=== PATIENT | female | born 1990 | race Caucasian/White ===

== ENCOUNTER 2017-01-13 00:04 | Emergency (ER) | payer OTHER ==
[2017-01-13] MEDS ORDERED: ONDANSETRON 4 MG/2 ML VIAL IVPB ONE (00:27)
[2017-01-13] MEDS ORDERED: FAMOTIDINE 20 MG/50 ML IVPB 50 ML IVPB ONE ×2 (00:27→00:47)
[2017-01-13] MEDS ORDERED: ACETAMINOPHEN 325 MG TABLET (FP) PO ONE (00:27)
[2017-01-13] MEDS ORDERED: SODIUM CHLORIDE 1,000 ML IV STA (00:27)
[2017-01-13 00:30] VITALS: BP 130/77; PULSE 71; TEMP 98.3; BMI 27.3
--- NOTE | 2017-01-13 00:30 | PDOC ---
History of Present Illness - General History Source: Patient Exam Limitations: No Limitations - History of Present Illness Initial Comments: 01/13/17 00:44 The patient is a 26 year old female, with no significant past medical history, who presents to the emergency department with intermittent RUQ pain for the past 3 months but worsening since yesterday. The most recent episode started yesterday with associated nausea and vomiting. The patient reports that the pain is occasionally worsened after eating. The patient denies fever, chills, diarrhea, flank pain, dysuria or urinary frequency. The patient denies a prior history of gallstones but endorse a family history. LMP: currently. Allergies: NKDA. Past Surgical History: None reported. Social History: Non smoker. Denies alcohol or drug use. PCP: [facility] <Angeline Schmidt - Last Filed: 01/13/17 01:49> - General History Source: Patient Exam Limitations: No Limitations <Osmin Aguila - Last Filed: 01/13/17 02:04> - General Stated Complaint: ABDOMINAL PAIN Time Seen by Provider: 01/13/17 00:21 Past History <Angeline Schmidt - Last Filed: 01/13/17 01:49> - Past Medical History Suicide Attempt (Hx): No - Immunization History Immunization Up to Date: Yes - Psycho/Social/Smoking Cessation Hx Anxiety: No Suicidal Ideation: No Smoking Status: No Smoking History: Never smoked Number of Cigarettes Smoked Daily: 0 Cigars Per Day: 0 Hx Alcohol Use: No Drug/Substance Use Hx: No Substance Use Type: None <Osmin Aguila - Last Filed: 01/13/17 02:04> - Past Medical History Allergies/Adverse Reactions: Allergies Allergy/AdvReac Type Severity Reaction Status Date / Time venom-honey bee AdvReac Verified 01/13/17 00:30 [bee venom (honey bee)] Home Medications: Ambulatory Orders Naproxen [Naprosyn -] 500 mg PO BID PRN #14 tablet 01/13/17 Ondansetron HCl [Zofran] 4 mg PO Q6H PRN #15 tablet 01/13/17 Review of Systems - Review of Systems Able to Perform ROS?: Yes Comments:: 01/13/17 00:33 GENERAL/CONSTITUTIONAL: No fever or chills. No weakness. HEAD, EYES, EARS, NOSE AND THROAT: No change in vision. No ear pain or discharge. No sore throat. CARDIOVASCULAR: No chest pain or shortness of breath. RESPIRATORY: No cough, wheezing, or hemoptysis. GASTROINTESTINAL: +Nausea, vomiting, RUQ pain. No diarrhea or constipation. GENITOURINARY: No dysuria, frequency, or change in urination. MUSCULOSKELETAL: No joint or muscle swelling or pain. No neck or back pain. SKIN: No rash. NEUROLOGIC: No headache, vertigo, loss of consciousness, or change in strength/ sensation. ENDOCRINE: No increased thirst. No abnormal weight change. HEMATOLOGIC/LYMPHATIC: No anemia, easy bleeding, or history of blood clots. ALLERGIC/IMMUNOLOGIC: No hives or skin allergy. <Angeline Schmidt - Last Filed: 01/13/17 01:49> *Physical Exam - Vital Signs Last Vital Signs Temp Pulse Resp BP Pulse Ox 98.3 F 71 18 130/77 100 01/13/17 00:24 01/13/17 00:24 01/13/17 00:24 01/13/17 00:24 01/13/17 00:24 - Physical Exam Comments: 01/13/17 00:32 GENERAL: Awake, alert, and fully oriented, in no acute distress. HEAD: No signs of trauma. EYES: PERRLA, EOMI, sclera anicteric, conjunctiva clear. ENT: Auricles normal inspection, hearing grossly normal, nares patent, oropharynx clear without exudates. Moist mucosa. NECK: Normal ROM, supple, no lymphadenopathy, JVD, or masses. LUNGS: Breath sounds equal, clear to auscultation bilaterally. No wheezes, and no crackles. HEART: Regular rate and rhythm, normal S1 and S2, no murmurs, rubs or gallops. ABDOMEN: RUQ tenderness to palpation. Positive Moon's sign. Soft, normoactive bowel sounds. No guarding, no rebound. No masses. EXTREMITIES: Normal range of motion, no edema. No clubbing or cyanosis. No cords , erythema, or tenderness. NEUROLOGICAL: Cranial nerves II through XII intact. Normal speech, normal gait. SKIN: Warm, dry, normal turgor, no rashes or lesions noted. <Angeline Schmidt - Last Filed: 01/13/17 01:49> ED Treatment Course - LABORATORY CBC & Chemistry Diagram: 01/13/17 00:40 01/13/17 00:40 <Angeline Schmidt - Last Filed: 01/13/17 01:49> - LABORATORY CBC & Chemistry Diagram: 01/13/17 00:40 01/13/17 00:40 <Osmin Aguila - Last Filed: 01/13/17 02:04> Medical Decision Making - Medical Decision Making 01/13/17 01:49 EXAM: US/ABDOMEN - US Reviewed By: Dr. Parviz Bah IMPRESSION: Cholelithiasis. No mural thickening or pericholecystic fluid. Mild hepatomegaly noted. CBD within normal limits. Normal appearance the right kidney and visualized pancreas. <Angeline Schmidt - Last Filed: 01/13/17 01:49> - Medical Decision Making 01/13/17 00:29 A portion of this note was written by my scribe, under my supervision. 26 year old female c/ no pmh p/w RUQ pain. Pt reports that she has had intermittent RUQ pain x 3 months, occasionally worsened with eating. This episode started yesterday with associated nausea and vomiting. Denies diarrhea, flank pain, dysuria, urinary frequency. Currently on her period. Pt does not have any known gallstone history but does have a family history. Differential includes biliary colic, acute cholecystitis, gastritis, pancreatitis. Will obtain labs, RUQ u/s, test, UA. Pain control and IVF and reassess. 01/13/17 01:52 CBC, BMP 01/13/17 00:40 01/13/17 00:40 CMP Sodium 139 mmol/L (136-145) 01/13/17 00:40 Potassium 3.8 mmol/L (3.5-5.1) 01/13/17 00:40 Chloride 104 mmol/L (98-107) 01/13/17 00:40 Carbon Dioxide 27 mmol/L (21-32) 01/13/17 00:40 Anion Gap 8 (8-16) 01/13/17 00:40 BUN 10 mg/dL (7-18) D 01/13/17 00:40 Creatinine 0.7 mg/dL (0.55-1.02) 01/13/17 00:40 Creat Clearance w eGFR > 60 (>60) 01/13/17 00:40 Random Glucose 86 mg/dL (74-106) 01/13/17 00:40 Calcium 8.8 mg/dL (8.5-10.1) 01/13/17 00:40 Total Bilirubin 0.5 mg/dL (0.2-1.0) 01/13/17 00:40 AST 19 U/L (15-37) D 01/13/17 00:40 ALT 29 U/L (12-78) 01/13/17 00:40 Alkaline Phosphatase 74 U/L (45-117) 01/13/17 00:40 Total Protein 7.3 g/dl (6.4-8.2) 01/13/17 00:40 Albumin 3.8 g/dl (3.4-5.0) 01/13/17 00:40 Lipase 154 U/L (73-393) 04 00:40 Urine Test Results Urine Color Ltyellow 01/13/17 00:40 Urine Appearance Clear 01/13/17 00:40 Urine pH 6.0 (5.0-8.0) 01/13/17 00:40 Ur Specific [place] 1.019 (1.001-1.035) 01/13/17 00:40 Urine Protein Negative (NEGATIVE) 01/13/17 00:40 Urine Glucose (UA) Negative (NEGATIVE) 01/13/17 00:40 Urine Ketones Negative (NEGATIVE) 01/13/17 00:40 Urine Blood 1+ (NEGATIVE) H 01/13/17 00:40 Urine Nitrite Negative (NEGATIVE) 01/13/17 00:40 Urine Bilirubin Negative (NEGATIVE) 01/13/17 00:40 Ur Leukocyte Esterase Negative (NEGATIVE) 01/13/17 00:40 Urine RBC 10 /hpf (0-3) 01/13/17 00:40 Urine WBC 1 /hpf (3-5) 01/13/17 00:40 Ur Epithelial Cells Rare /hpf (FEW) 01/13/17 00:40 Urine Bacteria Rare /hpf (NONE SEEN) 01/13/17 00:40 Urine Mucus Rare 04 00:40 Urine test negative. Ultrasound demonstrates cholethiasis but no acute cholecystitis. CBD within normal limits. 01/13/17 02:01 Pt given referral to a surgeon. Return precautions given. Discharge diagnosis: gallstones <Osmin Aguila - Last Filed: 01/13/17 02:04> *DC/Admit/Observation/Transfer - Attestations Scribe Attestion: 01/13/17 00:31 Documentation prepared by Angeline Schmidt, acting as medical tech for Osmin Aguila MD. <Angeline Schmidt - Last Filed: 01/13/17 01:49> - Discharge Dispostion Admit: No <Osmin Aguila - Last Filed: 01/13/17 02:04> Diagnosis at time of Disposition: Biliary colic - Discharge Dispostion Disposition: HOME Condition at time of disposition: Improved - Prescriptions Prescriptions: Naproxen [Naprosyn -] 500 mg PO BID PRN #14 tablet PRN Reason: Abdominal Pain Ondansetron HCl [Zofran] 4 mg PO Q6H PRN #15 tablet PRN Reason: Nausea - Referrals Referrals: Ayaan Bird MD [Staff Physician] - - Patient Instructions Printed Discharge Instructions: DI for Gallstones Additional Instructions: Please minimize greasy food. Drink plenty of fluids and rest. Take 500 mg naproxen every 12 hours as needed for pain. Take 4 mg zofran every 6 hours as needed for nausea. It is important that you call and schedule an appointment with a surgeon for outpatient follow up.
[2017-01-13] MEDS ORDERED: ACETAMINOPHEN 325 MG TABLET (FP) ONE (00:46)
[2017-01-13 00:57] LABS: BASOPHIL 0.5 % (0-2.0); MCH 28.5 pg (25.7-33.7); MCHC 33.2 g/dl (32.0-36.0); MEAN PLT VOLUME 9.2 fl (7.5-11.1); NEUTROPHILS 61.3 % (42.8-82.8); PLATELET COUNT 242 K/MM3 (134-434); RDW 13.4 % (11.6-15.6)
[2017-01-13 00:59] LABS: URINE APPEARANCE CLEAR; URINE BILIRUBIN NEGATIVE (NEGATIVE); URINE COLOR LTYELLOW; URINE GLUCOSE (UA) NEGATIVE (NEGATIVE); URINE KETONE NEGATIVE (NEGATIVE); URINE LEUK ESTERASE NEGATIVE (NEGATIVE); URINE NITRITE NEGATIVE (NEGATIVE); URINE PROTEIN NEGATIVE (NEGATIVE); URINE UROBILINOGEN NEGATIVE E.U./dl (0.2-1.0)
[2017-01-13 01:10] LABS: URINE BLOOD 1+ (NEGATIVE)
[2017-01-13 01:11] LABS: URINE BACTERIA RARE /hpf (NONE SEEN); URINE MUCUS RARE; URINE RBC 10 /hpf (0-3); URINE WBC 1 /hpf (3-5)
[2017-01-13 01:30] LABS: ALBUMIN 3.8 g/dl (3.4-5.0); ALK PHOS 74 U/L (45-117); ANION GAP 8 (8-16); BILIRUBIN,TOTAL 0.5 mg/dL (0.2-1.0); CALCIUM 8.8 mg/dL (8.5-10.1); CO2 27 mmol/L (21-32); COCKROFT - GAULT 128.6645; CREATININE 0.7 mg/dL (0.55-1.02); GLUCOSE,RANDOM 86 mg/dL (74-106); SGOT/AST 19 U/L (15-37); SGPT/ALT 29 U/L (12-78); TOT PROT 7.3 g/dl (6.4-8.2)
== END 2017-01-13 02:20 | disposition home or self-care (01) ==
LOC: JER 00:04
PROC: 3E033GC Introduction of Other Therapeutic Substance into Peripheral Vein, Percutaneous Approach (ICD-10-PCS; principal; 2017-01-13)
DX: K80.20 Calculus of gallbladder without cholecystitis without obstruction (principal)
CPT/HCPCS: 36415; 76705-TC; 80053; 81003; 81015; 83690; 84703; 85025; 87086; 99282-25

== ENCOUNTER 2017-03-15 07:32 | Day surgery (SDC) | payer OTHER ==
--- NOTE | 2017-03-09 12:09 | HP ---
DATE OF ADMISSION: 03/15/2017 DATE OF DICTATION: 02/28/2017 Patient is to be admitted through the [facility] in the near future, date to be determined. HISTORY: This is a 26-year-old woman who for several months has been experiencing intermittent right upper quadrant pain. Recently, she had a very severe attack, which required emergency room evaluation on December 27, 2016. Ultrasound completed at that time demonstrated evidence of cholelithiasis. Patient admitted now for laparoscopic cholecystectomy. On questioning, she does have a fatty food intolerance by history. Nonintentional weight loss. No history of jaundice. PATIENTS PAST MEDICAL HISTORY: Patient has no medical history. No history of hypertension, type 2 diabetes, respiratory, renal, or hepatic insufficiency. PAST SURGICAL HISTORY: Nil. ALLERGIES: None known. REGULAR MEDICATIONS: None. SOCIAL HISTORY: Negative for tobacco, positive alcohol/social/not quantified. FAMILY HISTORY: Nil. REVIEW OF SYSTEMS: Nil. PHYSICAL EXAMINATION: Abdomen: Soft, nontender, with no palpable findings. IMAGING: Gallbladder ultrasound of January 13, 2017, demonstrates cholelithiasis. Biliary ductal structures of normal caliber. IMPRESSION: Chronic cholecystitis/cholelithiasis, repetitive bouts of biliary colic. PLAN: Laparoscopic cholecystectomy. Possible open cholecystectomy. Indications, alternatives, possible complications were reviewed. Consent obtained. JAILYN VILLEDA M.D. [id number]
[2017-03-09 16:34] VITALS: BMI 27.3
[2017-03-15] MEDS ORDERED: PROPOFOL 20 ML ONE ×2 (09:09)
[2017-03-15] MEDS ORDERED: MIDAZOLAM HCL 2 MG/2 ML SINGLE DOSE VIAL ONE (09:09)
[2017-03-15] MEDS ORDERED: ROCURONIUM BROMIDE 50 MG/5 ML VIAL ONE (09:09)
[2017-03-15] MEDS ORDERED: ONDANSETRON 4 MG/2 ML VIAL ONE ×2 (10:41→11:19)
[2017-03-15] MEDS ORDERED: DEXAMETHASONE SOD PHOSPHATE 4 MG/1 ML VIAL ONE ×2 (10:41→11:19)
[2017-03-15] MEDS ORDERED: ceFAZolin SODIUM 1 GM VIAL ONE (10:41)
[2017-03-15] MEDS ORDERED: METOPROLOL TARTRATE 5 MG/5 ML VIAL ONE (11:19)
[2017-03-15] MEDS ORDERED: NEOSTIGMINE METHYLSULFATE 0.5 MG/ML - 10 ML MDV ONE (11:19)
[2017-03-15] MEDS ORDERED: GLYCOPYRROLATE 0.2 MG/1 ML VIAL ONE (11:19)
[2017-03-15] MEDS ORDERED: oxyCODONE HCL 5 MG TABLET PO PRN (12:01)
[2017-03-15] MEDS ORDERED: ONDANSETRON 4 MG/2 ML VIAL IVPUSH PRN (12:01)
[2017-03-15] MEDS ORDERED: LACTATED RINGERS SOLUTION 1,000 ML IV SCH (12:15)
[2017-03-15] MEDS ORDERED: morphine CARPU-JECT 4 MG/1 ML DISP.SYRIN IM PRN (12:31)
[2017-03-15] MEDS ORDERED: IBUPROFEN 400 MG TABLET (FP) PO PRN (12:33)
[2017-03-15] MEDS ORDERED: ACETAMINOPHEN 325 MG TABLET (FP) PO PRN (12:33)
[2017-03-15] MEDS ORDERED: ONDANSETRON 4 MG/2 ML VIAL IVPB PRN (12:33)
[2017-03-15] MEDS ORDERED: OXYCODONE/APAP 5/325MG COMBO TABLET PO PRN ×2 (12:34→12:35)
[2017-03-15] MEDS ORDERED: D5-1/2NS+20 MEQ KCL - 1,000 ML IV SCH (12:45)
[2017-03-15] MEDS ORDERED: oxyCODONE HCL 5 MG TABLET ONE (16:44)
--- NOTE | 2017-03-15 17:41 | OP ---
DATE OF OPERATION: 03/15/2017 PREOPERATIVE DIAGNOSIS: Chronic cholecystitis/cholelithiasis. POSTOPERATIVE DIAGNOSIS: Chronic cholecystitis/cholelithiasis. PROCEDURE: Laparoscopic cholecystectomy. OPERATING SURGEON: Adilson Grove M.D. SPECIAL EDUCATION TEACHERS: Mehdi Fan M.D. ANESTHESIA: General. ANESTHESIOLOGIST: Mary Cortés M.D. HISTORY: A 26-year-old woman who presents for cholecystectomy as management of symptomatic cholelithiasis. Indications, alternatives, possible complications reviewed. Consent obtained. DESCRIPTION OF PROCEDURE: With the patient in the supine position, under general endotracheal anesthesia, the abdomen was prepped and draped in the usual sterile fashion using chlorhexidine. Small infraumbilical incision was made. The Veress needle was placed into the abdominal cavity. The abdominal cavity was insufflated to an adequate pressure and volume using CO2 gas. Veress needle was removed. An 11-mm trocar port placed through the umbilical wound. The camera lens passed through this port, and the intraabdominal cavity visualized. Under direct vision, two 5-mm right anterolateral ports were placed, at which time clamps were passed to maintain traction on the gallbladder to aid in dissection. An 11-mm port was placed in the midline in the epigastrium, through which operating instruments were passed. Limited exploration in the abdomen revealed no significant findings except for several adhesions about the gallbladder. These were taken down under direct vision, exposing the entire gallbladder and hepatoduodenal ligament. The peritoneum of the hepatoduodenal ligament was incised. The cystic duct was identified. The cystic duct/bile duct junction was noted. The cystic duct was clipped proximally, distally, and divided. The adjacent artery was managed similarly. The gallbladder was then removed from the gallbladder bed, lysing its attachment using electrocautery. Prior to complete disconnection, the bed was inspected and adequate hemostasis noted. The gallbladder was freed entirely. All ports were removed under direct vision. No bleeding identified. The gallbladder was extracted via the umbilical port without difficulty and delivered. The pneumoperitoneum was allowed to escape. The fascia at the umbilicus was approximated with interrupted number 1 Vicryl sutures. All skin wounds were closed using subcuticular 4-0 Biosyn sutures. Needle, instrument count correct. Estimated blood loss minimal. Specimen gallbladder. Drains none. Patient tolerated procedure. Procedure was terminated. Sierra [id number] MTDD
[2017-03-15] MEDS: morphine CARPU-JECT 2 MG/1 ML DISP.SYRIN IM PRN (22:35)
[2017-03-15 22:39] VITALS: PULSE 60
[2017-03-16 05:49] VITALS: BP 105/69; TEMP 98.9
[2017-03-16] MEDS: morphine CARPU-JECT 2 MG/1 ML DISP.SYRIN IM PRN (06:21)
--- NOTE | 2017-03-17 14:07 | PATH ---
Surgical Pathology Report Patient Name: DELLA PENA [facility]. Rec. #: [id number] /Age/Gender: 1990 (Age: 26) / F Account: [id number] Location: [facility] AM[facility] Taken: 03/15/2017 Received: 03/15/2017 Reported: 03/17/2017 Physicians: Mehdi Fan Specimen(s) Received GALLBLADDER Clinical History Cholelithiasis and cholecystitis Final Diagnosis GALLBLADDER, CHOLECYSTECTOMY: CHRONIC CHOLECYSTITIS AND CHOLELITHIASIS. BENIGN REACTIVE PERICYSTIC LYMPH NODE PRESENT. Electronically Signed Justin Murguia M.D. Gross Description Received in formalin, labeled "gallbladder," is a 9.5 x 2.8 x 2.8 cm. gallbladder with a 0.2 cm. in length portion of cystic duct attached. There is a 1.8 cm in greatest dimension rhodes periductal lymph node present. The outer surface is rhodes elkins and varies from smooth to shaggy. The lumen contains green, tenacious bile as well as multiple brown, irregular to fragmented choleliths ranging from 0.1-1.8 cm in greatest dimension. The mucosa is green and focally eroded. The wall of the gallbladder ranges from 0.1-0.3 cm. in thickness. Fruit Or Nut Farm Worker sections are submitted in 2 cassettes as follows: 1-cystic duct margin and one whole bisected lymph node; 2-customer service representative gallbladder. 03/16/2017 [facility]03/16/2017
== END 2017-03-16 11:04 | disposition home or self-care (01) ==
LOC: FASU 07:32 → FM/S 19:48 → FASU 03-16 11:04
PROVIDERS: ATTEND Surgery
PROC: 0FT44ZZ Resection of Gallbladder, Percutaneous Endoscopic Approach (ICD-10-PCS; principal; 2017-03-15 10:53)
DX: K80.44 Calculus of bile duct with chronic cholecystitis without obstruction (principal)
CPT/HCPCS: 84703; 88304-TC; 94010; 94760

== ENCOUNTER 2017-03-30 22:57 | Emergency (ER) | payer OTHER ==
[2017-03-30] MEDS ORDERED: morphine CARPU-JECT 2 MG/1 ML DISP.SYRIN IM ONE (23:08)
[2017-03-30] MEDS ORDERED: morphine CARPU-JECT 4 MG/1 ML DISP.SYRIN ONE (23:12)
[2017-03-30] MEDS ORDERED: LIDOCAINE HCL 2% (50ML VIAL) INF ONE (23:25)
[2017-03-30] MEDS ORDERED: LIDOCAINE HCL 2% (20ML MULTI-DOSE VIAL) NR ONE (23:27)
[2017-03-30 23:31] VITALS: TEMP 97.6; BMI 27.3
[2017-03-31] MEDS ORDERED: KETAMINE HCL 200 MG/20 ML VIAL IVPUSH ONE
[2017-03-31] MEDS ORDERED: SODIUM CHLORIDE 1,000 ML IV STA
[2017-03-31] MEDS ORDERED: KETAMINE HCL 200 MG/20 ML VIAL ONE (00:17)
--- NOTE | 2017-03-31 00:39 | PDOC ---
History of Present Illness - General Chief Complaint: Shoulder Dislocation Stated Complaint: SHOULDER DISLOCATION Time Seen by Provider: 03/30/17 23:05 History Source: Patient Exam Limitations: No Limitations - History of Present Illness Initial Comments: 03/31/17 00:39 26yo Female patient w/ PmHx of shoulder dislocation 12/2013, Gall bladder removal 02/2017, presents to ED c/o right shoulder dislocation/pain. Patient states she was playing with significant other and took a swing at her, when her shoulder "popped" out. Patient denies any other complaints at this time. Occurred: reports: just prior to arrival Severity: reports: severe Upper Extremity Pain Location: right: shoulder Method of Injury: reports: other (See HPI) Modifying Factors: improves with: immobilization Associated Symptoms: See HPI Extremity Pain Location - Extremity Pain Location Extremity Pain Locations: right: arm Past History - Travel Traveled outside of the country in the last 30 days: No Close contact w/someone who was outside of country & ill: No - Past Medical History Allergies/Adverse Reactions: Allergies Allergy/AdvReac Type Severity Reaction Status Date / Time venom-honey bee AdvReac Verified 03/30/17 23:00 [bee venom (honey bee)] Home Medications: Ambulatory Orders Ibuprofen 600 mg PO Q6H PRN #30 tablet 03/31/17 Oxycodone HCl/Acetaminophen [Oxycodone-Acetaminophen 5-325] 1 each PO Q6H PRN # 8 tablet MDD 4 TABS 03/31/17 Anemia: No Asthma: No Cancer: No Cardiac Disorders: No CVA: No COPD: No CHF: No Dementia: No Diabetes: No GI Disorders: No Disorders: No HTN: No Hypercholesterolemia: No Liver Disease: No Suicide Attempt (Hx): No Seizures: No Thyroid Disease: No - Surgical History Abdominal Surgery: No Appendectomy: No Cardiac Surgery: No Cholecystectomy: No Lung Surgery: No Neurologic Surgery: No Orthopedic Surgery: No - Immunization History Immunization Up to Date: Yes - Psycho/Social/Smoking Cessation Hx Anxiety: No Suicidal Ideation: No Smoking Status: No Smoking History: Never smoked Have you smoked in the past 12 months: No Number of Cigarettes Smoked Daily: 0 Cigars Per Day: 0 Information on smoking cessation initiated: No Hx Alcohol Use: No Drug/Substance Use Hx: No Substance Use Type: None Hx Substance Use Treatment: No Review of Systems - Review of Systems Able to Perform ROS?: Yes Is the patient limited [place] proficient: No Musculoskeletal: Yes: Joint Pain All Other Systems: Reviewed and Negative *Physical Exam - Vital Signs Last Vital Signs Temp Pulse Resp BP Pulse Ox 97.6 F 72 14 114/88 100 03/30/17 23:01 03/30/17 23:01 03/30/17 23:01 03/30/17 23:01 03/30/17 23:01 - Physical Exam General Appearance: Yes: Nourished, Appropriately Dressed, Apparent Distress, Severe Distress. No: Mild Distress, Moderate Distress Respiratory/Chest: positive: Lungs Clear, Normal Breath Sounds. negative: Chest Tender, Respiratory Distress, Accessory Muscle Use, Labored Respiration, Rapid RR Cardiovascular: positive: Regular Rhythm, Regular Rate. negative: Tachycardia Gastrointestinal/Abdominal: positive: Normal Bowel Sounds, Soft. negative: Distended, Guarding, Rebound, Tenderness Musculoskeletal: positive: Normal Inspection. negative: CVA Tenderness, Decreased Range of Motion, Vertebral Tenderness Extremity: positive: Normal Capillary Refill, Tender (Rt shoulder), Other (Rt shoulder dislocation w/ guarding and splinting.). negative: Normal Inspection ( Rt shoulder), Normal Range of Motion (Rt shoulder) Integumentary: positive: Normal Color, Dry, Warm Neurologic: positive: chief commercial officer II-XII NML intact, Fully Oriented, Alert, Normal Mood/ Affect, Normal Response, Motor Strength 5/5 Procedures - Consent Consent obtained: Written, From Patient - Joint Reduction Right Joint Reduction Site: right: Shoulder Pre-Procedure NV Exam: normal Conscious Sedation: Yes Reduction Attempts: 1 Anesthetic: 2% Lidocaine (Local) Amount (mL): 15 Procedure: Traction Counter Traction Post-Procedure NV Exam: normal Complications: No Post Joint Reduction Film: joint reduced Splint: Yes Immobilized: Yes Progress: 03/31/17 00:46 Ketamine at 2mg/kg IVP given. Patient on cardiac monitoring, oxygen 2lpm, Ambubag and suction available. NS 1000cc bolus infusing at time of procedure. Patient tolerated procedure well. ED Treatment Course - RADIOLOGY Radiology Studies Ordered: Category Date Time Status SHOULDER-RIGHT [RAD] Stat Radiology 03/30/17 23:07 Completed SHOULDER-RIGHT [RAD] Stat Radiology 03/31/17 00:30 Ordered - Medications Given in the ED: ED Medications Discontinued Medications Generic Name Dose Route Start Last Admin Trade Name Freq PRN Reason Stop Dose Admin Ketamine HCl 130 mg 03/31/17 00:00 03/31/17 00:20 Ketalar - IVPUSH 03/31/17 00:01 130 mg ONCE ONE Administration Lidocaine HCl 20 mg 03/30/17 23:25 03/30/17 23:28 Xylocaine 2% INF 03/30/17 23:26 20 mg ONCE ONE Administration Morphine Sulfate 4 mg 03/30/17 23:08 03/30/17 23:17 Morphine Injection - IM 03/30/17 23:09 4 mg ONCE ONE Administration Medical Decision Making - Medical Decision Making 03/31/17 01:27 Post reduction x-ray shows shoulder reduced successfully. NV intact. 03/31/17 01:33 Search Terms: Henny Webb, 1990 Search Date: 03/31/2017 01:33:43 AM The Drug Utilization Report below displays all of the controlled substance prescriptions, if any, that your patient has filled in the last twelve months. The information displayed on this report is compiled from pharmacy submissions to the Department, and accurately reflects the information as submitted by the pharmacies. This report was requested by: Dimitris Harris | Reference #: [id number] There are no results for the search terms that you entered. *DC/Admit/Observation/Transfer Diagnosis at time of Disposition: Recurrent dislocation, right shoulder - Discharge Dispostion Disposition: HOME Condition at time of disposition: Improved Admit: No - Prescriptions Prescriptions: Ibuprofen 600 mg PO Q6H PRN #30 tablet PRN Reason: Mild Pain Oxycodone HCl/Acetaminophen [Oxycodone-Acetaminophen 5-325] 1 each PO Q6H PRN # 8 tablet MDD 4 TABS PRN Reason: Severe Pain - Referrals Referrals: Parviz Hirsch MD [Staff Physician] - - Patient Instructions Printed Discharge Instructions: DI for Shoulder Dislocation, DI for Shoulder Pain Additional Instructions: FOLLOW UP WITH DR. HIRSCH NEXT WEEK. CALL TO SCHEDULE APPOINTMENT. KEEP SHOULDER IN IMMOBILIZER DISCUSSED. MAY REMOVE TO TAKE SHOWERS. MOTRIN FOR MILD PAIN, OXYCODONE FOR PAIN NOT RELIEVED BY MOTRIN. APPLY COLD COMPRESS TO AFFECTED AREA EVERY 3-4 HOURS ON AND OFF FOR 10-15 MINS. RETURN IF ANY CONCERNS FOR FURTHER EVALUATION. Print Language: SENEGALESE - Post Discharge Activity Work/School Note: Back to Work
[2017-03-31 01:49] VITALS: BP 116/84; PULSE 84
== END 2017-03-31 01:49 | disposition home or self-care (01) ==
LOC: JER 22:57
PROC: 0RSJXZZ Reposition Right Shoulder Joint, External Approach (ICD-10-PCS; principal; 2017-03-30)
PROC: 3E0337Z Introduction of Electrolytic and Water Balance Substance into Peripheral Vein, Percutaneous Approach (ICD-10-PCS; 2017-03-30)
PROC: 3E023NZ Introduction of Analgesics, Hypnotics, Sedatives into Muscle, Percutaneous Approach (ICD-10-PCS; 2017-03-30)
DX: M24.411 Recurrent dislocation, right shoulder (principal); X50.9XXA Other and unspecified overexertion or strenuous movements or postures, initial encounter; Y93.83 Activity, rough housing and horseplay; Y92.89 Other specified places as the place of occurrence of the external cause; Y99.8 Other external cause status
CPT/HCPCS: 73030-TC-RT; 99284-25

== ENCOUNTER 2018-11-18 23:52 | Emergency (ER) | payer OTHER ==
[2018-11-19 00:21] VITALS: BP 105/55; PULSE 96; TEMP 98.1; BMI 33.2
--- NOTE | 2018-11-19 01:16 | PDOC ---
History of Present Illness - General Chief Complaint: Pain Stated Complaint: ABD PAIN Time Seen by Provider: 11/19/18 00:49 History Source: Patient Exam Limitations: No Limitations - History of Present Illness Initial Comments: 11/19/18 00:59 Patient is 28 year old female with h/o shoulder dislocation x 2, cholecystectomy , anxiety c/o severe pressure pain in the upper abd had been intermittent x 2-3 months but this past week she has had the pain x 4 days, which is now 10/10 associated with wave of nausea, vomiting, sweating, hot and cold sweats which lasted for hours. These symptoms started 1 hours [employer] while sitting on the couch. States she feels very fatigue when the episode is over. "It feels almost like I am have a gall bladder attack" No fever, diarrhea. Had cholecystectomy 2 years ago, 1 year post op is when the symptoms started. States that whenever she takes Tylenol or oxycodone she has these symptoms. PMHX: as above PSOCHx: occ etoh, no cig, no durg ALL: NKDA GENERAL/CONSTITUTIONAL: [No fever or chills. No weakness. No weight change.] HEAD, EYES, EARS, NOSE AND THROAT: [No change in vision. No ear pain or discharge. No sore throat.] CARDIOVASCULAR: (-) chest pain (-) shortness of breath.] RESPIRATORY: [No cough, wheezing, or hemoptysis.] GASTROINTESTINAL: [No nausea, vomiting, diarrhea or constipation. No rectal bleeding.] GENITOURINARY: [No dysuria, frequency, or change in urination.] MUSCULOSKELETAL: [No joint or muscle swelling or pain. No neck or back pain.] SKIN AND BREASTS: [No rash or easy bruising.] NEUROLOGIC: [No headache, vertigo, loss of consciousness, or loss of sensation.] PSYCHIATRIC: [No depression (+) anxiety.] ENDOCRINE: [No increased thirst. No abnormal weight change.] HEMATOLOGIC/LYMPHATIC: [No anemia, easy bleeding, or history of blood clots.] ALLERGIC/IMMUNOLOGIC: [No hives or skin allergy. No latex allergy.] GENERAL: [The patient is awake, alert, and fully oriented, in no acute distress. ] HEAD: [Normal with no signs of trauma.] EYES: [Pupils equal, round and reactive to light, extraocular movements intact, sclera anicteric, conjunctiva clear.] ENT: [Ears normal, nares patent, oropharynx clear without exudates. Moist mucous membranes.] NECK: [Normal range of motion, supple without lymphadenopathy, JVD, or masses.] LUNGS: [Breath sounds equal, clear to auscultation bilaterally. No wheezes, and no crackles.] HEART: [Regular rate and rhythm, normal S1 and S2 without murmur, rub.] ABDOMEN: [Soft, (+) tender upper abdomen, normoactive bowel sounds. No guarding , no rebound. No masses.] EXTREMITIES: [Normal range of motion, no edema. No clubbing or cyanosis. No cords, erythema, or tenderness.] NEUROLOGICAL: [Cranial nerves II through XII grossly intact. Normal speech, normal gait.] PSYCH: [Normal mood, normal affect.] SKIN: [Warm, Dry, normal turgor, no rashes or lesions noted.] Past History - Past Medical History Allergies/Adverse Reactions: Allergies Allergy/AdvReac Type Severity Reaction Status Date / Time acetaminophen [From Percocet] Allergy Verified 11/19/18 00:21 oxycodone [From Percocet] Allergy Verified 11/19/18 00:21 venom-honey bee AdvReac Verified 11/19/18 00:22 [bee venom (honey bee)] Home Medications: Ambulatory Orders NK [No Known Home Medication] 11/19/18 Anemia: No Asthma: No Cancer: No Cardiac Disorders: No CVA: No COPD: No CHF: No Dementia: No Diabetes: No GI Disorders: No Disorders: No HTN: No Hypercholesterolemia: No Liver Disease: No Seizures: No Thyroid Disease: No - Surgical History Abdominal Surgery: No Appendectomy: No Cardiac Surgery: No Cholecystectomy: Yes Lung Surgery: No Neurologic Surgery: No Orthopedic Surgery: No - Immunization History Immunization Up to Date: Yes - Suicide/Smoking/Psychosocial Hx Smoking Status: No Smoking History: Never smoked Have you smoked in the past 12 months: No Number of Cigarettes Smoked Daily: 0 Cigars Per Day: 0 Hx Alcohol Use: No Drug/Substance Use Hx: No Substance Use Type: None Hx Substance Use Treatment: No *Physical Exam - Vital Signs Last Vital Signs Temp Pulse Resp BP Pulse Ox 98.1 F 96 H 18 105/55 L 96 11/19/18 00:19 11/19/18 00:19 11/19/18 00:19 11/19/18 00:19 11/19/18 00:19 Moderate Sedation - Procedure Monitoring Vital Signs: Procedure Monitoring Vital Signs Temperature 98.1 F 11/19/18 00:19 Pulse Rate 96 H 11/19/18 00:19 Respiratory Rate 18 11/19/18 00:19 Blood Pressure 105/55 L 11/19/18 00:19 O2 Sat by Pulse Oximetry (%) 96 11/19/18 00:19 ED Treatment Course - LABORATORY CBC & Chemistry Diagram: 11/19/18 01:26 11/19/18 01:20 Medical Decision Making - Medical Decision Making 11/19/18 00:59 Patient is 28 year old female with h/o shoulder dislocation x 2, cholecystectomy , anxiety c/o severe pressure pain in the upper abd had been intermittent x 2-3 months but this past week she has had the pain x 4 days, which is now 10/10 associated with wave of nausea, vomiting, sweating, hot and cold sweats which lasted for hours. These symptoms started 1 hours [employer] and was sitting on the couch when the symtoms started. States she feels very fatigue when the episode is over. "It feels almost like I am have a gall bladder attack" No fever, diarrhea. Had cholecystectomy 2 years ago, 1 year post op is when the symptoms started. States that whenever she takes Tylenol or oxycodone she has these symptoms. Patient's symptoms are consistent with gastritis, however since the patient had history of cholecystectomy will rule out stone in the duct. will get liver enzymes and lipase Your Discharge Instructions: You must call primary care physician within 24 hours to arrange follow-up. Return to the Emergency Department with any new, persistent or worsening symptoms, for fever, chills, SOB, dizziness or any other concerning changes that may occur. *DC/Admit/Observation/Transfer Diagnosis at time of Disposition: Gastritis Qualifiers: Gastritis type: unspecified gastritis Chronicity: unspecified Gastritis bleeding: without bleeding Qualified Code(s): K29.70 - Gastritis, unspecified, without bleeding - Discharge Dispostion Disposition: HOME Condition at time of disposition: Stable - Referrals Referrals: Nayan Quinones MD [Staff Physician] - - Patient Instructions Printed Discharge Instructions: DI for Gastritis Additional Instructions: Your Discharge Instructions: You must call primary care physician within 24 hours to arrange follow-up. Return to the Emergency Department with any new, persistent or worsening symptoms, for fever, chills, SOB, dizziness or any other concerning changes that may occur. He was follow-up with Gastroenterology for evaluation further workup. - Post Discharge Activity
[2018-11-19] MEDS ORDERED: KETOROLAC TROMETHAMINE 30 MG/1 ML VIAL IVPUSH ONE (01:17)
[2018-11-19] MEDS ORDERED: FAMOTIDINE 20 MG/50 ML IVPB 20 MG/50 ML MG IVPB ONE ×2 (01:17→01:22)
[2018-11-19] MEDS ORDERED: ONDANSETRON 4 MG/2 ML VIAL IVPUSH ONE (01:17)
[2018-11-19] MEDS ORDERED: ONDANSETRON 4 MG/2 ML VIAL ONE (01:22)
[2018-11-19] MEDS ORDERED: KETOROLAC TROMETHAMINE 30 MG/1 ML VIAL ONE (01:22)
[2018-11-19 01:33] LABS: BASO % 0.9 % (0-2.0); EOS % 0.6 % (0-4.5); HEMATOCRIT 37.1 % (32.4-45.2); HEMOGLOBIN 12.9 GM/dL (10.7-15.3); LYMPH % 25.1 % (8-40); MCH 29.6 pg (25.7-33.7); MCHC 34.6 g/dl (32.0-36.0); MEAN CELL VOLUME 85.3 fl (80-96); MEAN PLT VOLUME 8.9 fl (7.5-11.1); MONO % 8.5 % (3.8-10.2); NEUT % 64.9 % (42.8-82.8); PLATELET COUNT 238 K/MM3 (134-434); RBC 4.35 M/mm3 (3.60-5.2); RDW 13.4 % (11.6-15.6); WHITE BLOOD COUNT 8.8 K/mm3 (4.0-10.0)
[2018-11-19 02:16] LABS: ALBUMIN 3.8 g/dl (3.4-5.0); ALK PHOS 75 U/L (45-117); ANION GAP 5 MMOL/L (8-16); BILIRUBIN,TOTAL 0.3 mg/dL (0.2-1); BLOOD UREA NITROGEN 10 mg/dL (7-18); CALCIUM 8.5 mg/dL (8.5-10.1); CHLORIDE 107 mmol/L (98-107); CO2 26 mmol/L (21-32); CREATININE 0.7 mg/dL (0.55-1.3); GLUCOSE,RANDOM 112 mg/dL (74-106); LIPASE 284 U/L (73-393); POTASSIUM 3.6 mmol/L (3.5-5.1); SGOT/AST 25 U/L (15-37); SGPT/ALT 26 U/L (13-61); SODIUM 139 mmol/L (136-145); TOT PROT 7.2 g/dl (6.4-8.2)
== END 2018-11-19 02:28 | disposition home or self-care (01) ==
LOC: JER 23:52
PROC: 3E033GC Introduction of Other Therapeutic Substance into Peripheral Vein, Percutaneous Approach (ICD-10-PCS; principal; 2018-11-18)
PROC: 3E033GC Introduction of Other Therapeutic Substance into Peripheral Vein, Percutaneous Approach (ICD-10-PCS; 2018-11-18)
PROC: 3E033NZ Introduction of Analgesics, Hypnotics, Sedatives into Peripheral Vein, Percutaneous Approach (ICD-10-PCS; 2018-11-18)
DX: K29.70 Gastritis, unspecified, without bleeding (principal)
CPT/HCPCS: 36415; 80053; 83690; 85025; 99282-25

== ENCOUNTER 2019-03-17 22:32 | Emergency (ER) | payer OTHER ==
[2019-03-17 23:03] VITALS: BP 103/66; PULSE 124; TEMP 98.7; BMI 30.4
--- NOTE | 2019-03-17 23:05 | PDOC ---
History of Present Illness - General Chief Complaint: Vomiting/Diarrhea Stated Complaint: VOMITING Time Seen by Provider: 03/17/19 23:01 - History of Present Illness Initial Comments: The pt is a 28F w/ a history of lap arcadio 2 years ago who presents for evaluation of 5 hours of epigastric/RUQ abdominal pain. The pain is cramping/ sharp, constant, non-radiating, associated w/ NBNB vomiting Q30min and NB diarrhea x2, alleviated partially by recumbency, and not exacerbated by anything she can identify. Her symptoms started approximately 30min to an hour s /p Sushi she had for dinner. No others she was with had what she ate and she denies sick contacts. She denies any fevers/chills, GAMINO, vision changes, chest pain, SOB, dysuria, hematuria, vaginal bleeding/discharge, or changes in sensation. PMH: Denies PSH: lap arcadio Allergies: Tylenol SH: Denies x3 03/17/19 23:05 Past History - Past Medical History Allergies/Adverse Reactions: Allergies Allergy/AdvReac Type Severity Reaction Status Date / Time acetaminophen [From Percocet] Allergy Verified 03/17/19 23:03 oxycodone [From Percocet] Allergy Verified 03/17/19 23:03 venom-honey bee AdvReac Verified 03/17/19 23:03 [bee venom (honey bee)] Home Medications: Ambulatory Orders Ondansetron [Zofran Odt -] 4 mg SL Q6H PRN #12 od.tablet 03/18/19 Anemia: No Asthma: No Cancer: No Cardiac Disorders: No CVA: No COPD: No CHF: No Dementia: No Diabetes: No GI Disorders: No Disorders: No HTN: No Hypercholesterolemia: No Liver Disease: No Seizures: No Thyroid Disease: No - Surgical History Abdominal Surgery: No Appendectomy: No Cardiac Surgery: No Cholecystectomy: Yes Lung Surgery: No Neurologic Surgery: No Orthopedic Surgery: No - Immunization History Immunization Up to Date: Yes - Suicide/Smoking/Psychosocial Hx Smoking Status: No Smoking History: Unknown if ever smoked Have you smoked in the past 12 months: No Number of Cigarettes Smoked Daily: 0 Cigars Per Day: 0 Hx Alcohol Use: No Drug/Substance Use Hx: No Substance Use Type: None Hx Substance Use Treatment: No Review of Systems - Review of Systems Able to Perform ROS?: Yes Comments:: GENERAL/CONSTITUTIONAL: No fever or chills. No weakness HEAD, EYES, EARS, NOSE AND THROAT: No change in vision. No ear pain or discharge. No sore throat CARDIOVASCULAR: No chest pain or shortness of breath RESPIRATORY: Denies cough, hemoptysis GENITOURINARY: No dysuria, frequency, or change in urination MUSCULOSKELETAL: No joint or muscle swelling or pain. No neck or back pain SKIN: No rash NEUROLOGIC: No headache, vertigo, loss of consciousness, or change in strength/ sensation ENDOCRINE: No increased thirst. No abnormal weight change HEMATOLOGIC/LYMPHATIC: No anemia, easy bleeding, or history of blood clots ALLERGIC/IMMUNOLOGIC: No hives or skin allergy 03/17/19 23:17 Is the patient limited Romansh proficient: No *Physical Exam - Vital Signs Last Vital Signs Temp Pulse Resp BP Pulse Ox 98.7 F 124 H 18 103/66 96 03/17/19 23:02 03/17/19 23:02 03/17/19 23:02 03/17/19 23:02 03/17/19 23:02 - Physical Exam Comments: GENERAL: Awake, alert, and oriented to person/place/time, in no acute distress HEAD: No signs of trauma, normocephalic, atraumatic EYES: PERRLA, EOMI, sclera anicteric, conjunctiva clear ENT: Hearing grossly normal, nares patent, oropharynx clear without exudates. No uvular deviation. Moist mucosa LUNGS: No distress, speaks in full sentences, clear to auscultation bilaterally HEART: Tachycardic rate with regular rhythm, normal S1 and S2, no murmurs appreciated, peripheral pulses normal and equal bilaterally ABDOMEN: Soft, epigastric/RUQ TTP w/o rebound or guarding, normoactive bowel sounds EXTREMITIES: Normal inspection, Normal range of motion, no edema. No clubbing or cyanosis NEUROLOGICAL: Cranial nerves II through XII grossly intact. Normal speech, normal gait, no focal sensorimotor deficits SKIN: Warm, Dry 03/17/19 23:18 ED Treatment Course - LABORATORY CBC & Chemistry Diagram: 03/17/19 22:45 03/17/19 22:45 Medical Decision Making - Medical Decision Making The pt is a 28F w/ a history of lap arcadio who presents for evaluation of 5 hours of RUQ/epigastric pain with associated NBNB vomiting and NB diarrhea Ddx includes gastroenteritis/food poisoning, viral syndrome, biliary disease, pancreatitis, consider infection ED Course CMP, CBC, Lipase, UA, UCx, Upreg IVF, Zofran, 03/17/19 23:18 Leukocytosis to 11.9, possibly 2/2 to retching Lytes wnl Tbili elevated to 1.2 Mild transaminitis Will obtain RUQ US to evaluate for retained stone 03/18/19 00:32 UA w/o evidence of UTI Pt feels improved s/p meds RUQ US FINDINGS: Right upper quadrant ultrasound: 2 echogenic liver masses likely reflect hemangiomas. There is no intrahepatic biliary duct dilation. Status post cholecystectomy. The CBD is not dilated and measures4 millimeters in diameter. Right kidney measures 10.7centimeters in length and is unremarkable. The visualized aorta and IVC are normal. Pancreas is partially obscured, but appears normal. Will PO challenge, if pass plan for D/C w/ PCP f/u Pt w/ likely gastroenteritis v food poisoning v viral syndrome Will provide D/C instructions and return precautions Dispo:home 03/18/19 01:23 *DC/Admit/Observation/Transfer Diagnosis at time of Disposition: Abdominal pain Qualifiers: Abdominal location: epigastric Qualified Code(s): R10.13 - Epigastric pain Nausea & vomiting Qualifiers: Vomiting type: unspecified Vomiting Intractability: non-intractable Qualified Code(s): R11.2 - Nausea with vomiting, unspecified - Discharge Dispostion Disposition: HOME Condition at time of disposition: Stable Decision to Admit order: No - Prescriptions Prescriptions: Ondansetron [Zofran Odt -] 4 mg SL Q6H PRN #12 od.tablet PRN Reason: Nausea And/Or Vomiting - Referrals Referrals: [facility] [place] [facility] [place] [Provider Group] Wenceslao Bird MD [Staff Physician] - - Patient Instructions Printed Discharge Instructions: DI for Viral Gastroenteritis -- Adult Additional Instructions: You were seen in the Emergency Department for evaluation of abdominal pain with vomiting and diarrhea. Your labs were notable for a mild elevation in your liver enzymes and your ultrasound noted a normal biliary tree with 2 likely hemangiomas. No emergent intervention is needed for the hemangiomas but the report is included so you can take it to your primary care physician's visit. Review the handout provided at discharge. Follow up with your primary care provider within a week and a gastroenterology referral was provided for you. A prescription for Zofran was sent to your pharmacy for symptomatic relief of nausea. Return to the Emergency Department if you develop fevers/chills, chest pain, trouble breathing, inability to tolerate food, lightheadedness, worsening symptoms, or any new/concerning symptoms. - Post Discharge Activity Forms/Work/School Notes: Back to Work
[2019-03-17] MEDS ORDERED: LACTATED RINGERS SOLUTION 1000 ML INFUS.BAG IV ONE (23:07)
[2019-03-17] MEDS ORDERED: ONDANSETRON 4 MG/2 ML VIAL IVPUSH ONE (23:07)
[2019-03-17] MEDS ORDERED: FAMOTIDINE 20 MG/50 ML IVPB 20 MG/50 ML MG IVPB ONE ×2 (23:35→23:52)
[2019-03-17] MEDS ORDERED: ONDANSETRON 4 MG/2 ML VIAL ONE (23:52)
[2019-03-18 00:01] LABS: BASO % 0.3 % (0-2.0); EOS % 0.1 % (0-4.5); HEMATOCRIT 41.3 % (32.4-45.2); HEMOGLOBIN 13.5 GM/dL (10.7-15.3); LYMPH % 2.2 % (8-40); MCH 27.9 pg (25.7-33.7); MCHC 32.7 g/dl (32.0-36.0); MEAN CELL VOLUME 85.5 fl (80-96); MEAN PLT VOLUME 9.2 fl (7.5-11.1); MONO % 4.9 % (3.8-10.2); NEUT % 92.5 % (42.8-82.8); PLATELET COUNT 235 K/MM3 (134-434); RBC 4.83 M/mm3 (3.60-5.2); RDW 13.9 % (11.6-15.6); WHITE BLOOD COUNT 11.9 K/mm3 (4.0-10.0)
[2019-03-18 00:22] LABS: ALBUMIN 3.9 g/dl (3.4-5.0); BILIRUBIN,TOTAL 1.2 mg/dL (0.2-1); BLOOD UREA NITROGEN 13.2 mg/dL (7-18); CALCIUM 8.5 mg/dL (8.5-10.1); CREATININE 0.8 mg/dL (0.55-1.3); POTASSIUM 3.8 mmol/L (3.5-5.1); TOT PROT 7.3 g/dl (6.4-8.2)
--- NOTE | 2019-03-18 00:53 | PDOC ---
Documentation entered by Caron Burk SCRIBE, acting as scribe for Alissa Mckeon MD. Alissa Mckeon MD: This documentation has been prepared by the Bhargavi bhardwaj Sammi, SCRIBE, under my direction and personally reviewed by me in its entirety. I confirm that the documentation accurately reflects all work, treatment, procedures, and medical decision making performed by me. Attending Attestation - Resident Resident Name: Emile Castaneda - ED Attending Attestation I have performed the following: I have examined & evaluated the patient, The case was reviewed & discussed with the resident, I agree w/resident's findings & plan, Exceptions are as noted - HPI HPI: 03/17/19 23:34 The patient is a 28 year old female, with a significant PMH of lap arcadio, who presents to the emergency department for evaluation of several hours of constant , non radiating, sharp RUQ and epigastric pain and multiple episodes of vomiting and diarrhea s/p eating sushi. Denies sick contact. The patient denies chest pain, shortness of breath, headache and dizziness. Denies fever, chills, constipation. Denies dysuria, frequency, urgency and hematuria. Allergies: acetaminophen, oxycodon - Physicial Exam PE: 03/18/19 00:31 28 yo female actively vomiting when I entered the room head ncat moist mucus membranes neck supple lungs cta b/l cvs tachycardia abd mild upper quadrant tenderness + no cva tenderness skin warm and dry neuro axox3,ambulatory 03/18/19 00:44 - Medical Decision Making 03/18/19 00:46 28 yo female with nausea,vomiting,diarrhea several hours after eating sushi sl leukocytosis ,review of chemistries showed normal renal function and electrolystes, but there is a bump in t bilirubin there is an elevation of t bili pt receiving IVF ,anti emetics 03/18/19 01:37 pt 's symptoms improved,will d/c home imp gastroenteritis
[2019-03-18 00:59] LABS: EPI CELLS 6.8 /HPF (0-5/HPF); HYALINE CASTS 8 /lpf (0-8); URINE APPEARANCE CLEAR; URINE BILIRUBIN NEGATIVE (NEGATIVE); URINE COLOR DK YELLOW; URINE GLUCOSE (UA) NEGATIVE (NEGATIVE); URINE KETONE 4+ (NEGATIVE); URINE LEUK ESTERASE NEGATIVE (NEGATIVE); URINE NITRITE NEGATIVE (NEGATIVE); URINE PROTEIN NEGATIVE (NEGATIVE); URINE RBC 17 /hpf (0-4); URINE WBC 4 /hpf (0-5)
[2019-03-18 01:14] LABS: PLATELET ESTIMATE ADEQUATE
[2019-03-18] MEDS ORDERED: LIDOCAINE VISCOUS 2% ORAL/TOP 20 ML UNIT-DOSE CUP MM ONE ×2 (01:15→01:32)
[2019-03-18] MEDS ORDERED: MAG HYDROX/AL HYDROX/SIMETH 30 ML UNIT-DOSE CUP PO ONE (01:15)
[2019-03-18] MEDS ORDERED: LIDOCAINE VISCOUS 2% ORAL/TOP 20 ML UNIT-DOSE CUP ONE (01:30)
[2019-03-18] MEDS ORDERED: MAG HYDROX/AL HYDROX/SIMETH 30 ML UNIT-DOSE CUP ONE (01:31)
== END 2019-03-18 02:30 | disposition home or self-care (01) ==
LOC: JER 22:32
PROC: 3E033GC Introduction of Other Therapeutic Substance into Peripheral Vein, Percutaneous Approach (ICD-10-PCS; principal; 2019-03-17)
PROC: 3E0337Z Introduction of Electrolytic and Water Balance Substance into Peripheral Vein, Percutaneous Approach (ICD-10-PCS; 2019-03-17)
DX: A08.4 Viral intestinal infection, unspecified (principal); B97.89 Other viral agents as the cause of diseases classified elsewhere
CPT/HCPCS: 36415; 76705-TC; 80053; 81003; 83690; 84703; 85025; 87086; 99281-25

== ENCOUNTER 2020-09-14 15:23 | Emergency (ER) | payer SELFPAY | END 2020-09-14 18:12 | disposition home or self-care (01) | LOC: JVIRT 15:23 | DX: R51.9 Headache, unspecified (principal); Z20.828 Contact with and (suspected) exposure to other viral communicable diseases | CPT/HCPCS: C9803; G2012-GT; U0003 ==